=== PATIENT | male | born 1935 | race Caucasian/White ===

== ENCOUNTER 2017-08-17 05:54 | Inpatient (IN) | payer MEDICARE, BC ==
[~2017-08-17] VITALS: Ht 177.8 cm; Wt 94.1 kg
[~2017-08-17 05:54] MED LIST: ACET-2119 PO; ATOR40TA PO; CARV3.122 PO; CETI-1 PO; CHOL200074 PO; COU3T PO; DEXL60CA3 PO; DEXT1CAP3 PO; EZET10TA14 PO; FENO200C8 PO; FERR1TAB21 PO; FURO-150 PO; HYDR-565 PO; HYDR28.316 RC; MELO-102 PO; MONT10TA21 PO; NITR0.4T51 SL; POLY17PO10 PO; POTA8TAB8 PO; SENN-129 PO; SERT50TA PO; TERA2CAP4 PO
[2017-08-17] MEDS ORDERED: nitroGLYCERIN 0.4mg SUBLingual tab SL PRN ×2 (06:20→16:15)
[2017-08-17] MEDS ORDERED: aspirin 81mg tab.chew PO ONE (06:20)
[2017-08-17 06:40] LABS: BASOPHILS % (AUTO) 0.6 % (0-1); EOSINOPHILS # (AUTO) 0.8 X10'3 (0-0.9); EOSINOPHILS % (AUTO) 9.6 % (0-6); HEMATOCRIT 32.4 % (42.0-52.0); HEMOGLOBIN 10.7 g/dl (14.0-17.9); LYMPHOCYTES # (AUTO) 1.5 X10'3 (1.1-4.8); LYMPHOCYTES % (AUTO) 18.9 % (21-51); MEAN CORPUSCULAR HEMOGLOBIN 32.1 PG (27.0-31.0); MEAN CORPUSCULAR HGB CONC 32.9 % (33.0-36.5); MEAN CORPUSCULAR VOLUME 97.3 FL (78-98); MONOCYTES # (AUTO) 0.9 X10'3 (0-0.9); MONOCYTES % (AUTO) 11.4 % (2-12); NEUTROPHILS # (AUTO) 4.8 X10'3 (1.8-7.7); NEUTROPHILS % (AUTO) 59.5 % (42-75); PLATELET COUNT 173 X10'3 (140-440); RED BLOOD COUNT 3.33 X10'6 (4.70-6.10); RED CELL DISTRIBUTION WIDTH 15.3 % (11.5-14.5); WHITE BLOOD COUNT 8.1 X10'3 (4.5-11.0)
[2017-08-17] MEDS ORDERED: ondansetron/PF 4mg/2ml inj IV ONE (06:45)
[2017-08-17 06:51] LABS: INR 1.9 INR; PROTHROMBIN TIME 19.4 SECONDS (9.0-12.0)
[2017-08-17 06:57] LABS: ALANINE AMINOTRANSFERASE 21 U/L (12-78); ALBUMIN 2.7 G/DL (3.4-5.0); ALBUMIN/GLOBULIN RATIO 0.8 (1.1-1.5); ALKALINE PHOSPHATASE 113 IU/L (46-116); ANION GAP 4 (8-16); ASPARTATE AMINO TRANSFERASE 28 U/L (10-37); BILIRUBIN,TOTAL 0.3 MG/DL (0.1-1.0); BLOOD UREA NITROGEN 19 MG/DL (7-18); BUN/CREATININE RATIO 18.8 (5.4-32.0); CALCIUM 8.8 MG/DL (8.5-10.1); CHLORIDE 108 MMOL/L (99-107); CREATININE 1.01 MG/DL (0.60-1.10); GLUCOSE 101 MG/DL (70-104); SODIUM 147 MMOL/L (135-145); TOTAL CARBON DIOXIDE 35.3 MMOL/L (24-32); TOTAL PROTEIN 6.3 G/DL (6.4-8.2); eGFR 71 ML/MIN
[2017-08-17] MEDS ORDERED: acetaminophen 325mg tablet PO ONE (07:00)
[2017-08-17 07:06] LABS: MAGNESIUM 1.9 MG/DL (1.5-2.4)
[2017-08-17] MEDS ORDERED: mag hydrox/Alum hydrox/simeth 30ml oral suspension PO ONE (07:20)
[2017-08-17 09:00] VITALS: BP 166/76
[2017-08-17] MEDS: normal saline 1000ml 1,000 ML IV SCH ×2 (09:04→15:07)
[2017-08-17] MEDS ORDERED: morphine sulfate 8 MG/ML SYRINGE IV PRN ×2 (09:05)
[2017-08-17] MEDS ORDERED: bisacodyl 10mg suppository rectal RC PRN (09:05)
[2017-08-17] MEDS ORDERED: ondansetron/PF 4mg/2ml inj IV PRN (09:05)
[2017-08-17] MEDS ORDERED: HYDROcodone/acetaminophen 10/325mg tab PO PRN (09:05)
[2017-08-17] MEDS ORDERED: pantoprazole 40 MG vial IV ONE (09:05)
[2017-08-17] MEDS ORDERED: magnesium hydroxide 30ml (MOM) UD suspension PO PRN ×2 (09:05→16:15)
[2017-08-17] MEDS ORDERED: mag hydrox/Alum hydrox/simeth 30ml oral suspension PO PRN (09:05)
[2017-08-17] MEDS ORDERED: acetaminophen 325mg tablet PO PRN ×2 (09:05)
[2017-08-17] MEDS ORDERED: HYDROcodone/acetaminophen 5mg/325mg tablet PO PRN (09:05)
[2017-08-17] MEDS ORDERED: PANT-47 PO (10:16)
[2017-08-17] MEDS ORDERED: ACET-2119 PO (10:18)
[2017-08-17] MEDS ORDERED: DEXT15DR7 EACHEYE (10:19)
[2017-08-17] MEDS ORDERED: MAGN400O6 PO (10:24)
[2017-08-17 11:00] VITALS: BP 164/78
[2017-08-17 15:00] VITALS: BP 113/56
[2017-08-17] MEDS ORDERED: polyvinyl alcohol ophthalmic drops 15ml bottle EACHEYE PRN (16:30)
[2017-08-17 19:00] VITALS: BP 141/68
[2017-08-17] MEDS: docusate sodium 100mg/10ml UD cup PO SCH (20:00)
[2017-08-17] MEDS: HYDROcodone/acetaminophen 10/325mg tab PO PRN (20:00)
[2017-08-17] MEDS: carVEDilol 3.125mg tablet PO SCH (20:00)
[2017-08-17] MEDS: DEXTROMETHORPHAN HBR PO SCH (20:03)
[2017-08-17] MEDS: QUINIDINE PO SCH (20:03)
[2017-08-17] MEDS ORDERED: warfarin 3mg tablet PO ONE (21:00)
[2017-08-17] MEDS: HYDROCORTISONE 28.35 GM CREAM.GM. RC SCH (21:00)
[2017-08-17] MEDS ORDERED: temazepam 15mg capsule PO PRN (21:00)
[2017-08-17] MEDS: atorvastatin 20mg tablet PO SCH (21:50)
[2017-08-17] MEDS: Terazosin 1mg capsule PO SCH (21:51)
[2017-08-17 23:00] VITALS: BP 126/57
[2017-08-18 03:00] VITALS: BP 138/68
[2017-08-18 06:00] VITALS: BP 140/71
[2017-08-18 06:32] LABS: BASOPHILS % (AUTO) 0.7 % (0-1); EOSINOPHILS # (AUTO) 0.8 X10'3 (0-0.9); HEMATOCRIT 29.4 % (42.0-52.0); HEMOGLOBIN 9.5 g/dl (14.0-17.9); LYMPHOCYTES # (AUTO) 1.4 X10'3 (1.1-4.8); LYMPHOCYTES % (AUTO) 20.1 % (21-51); MEAN CORPUSCULAR HEMOGLOBIN 31.6 PG (27.0-31.0); MEAN CORPUSCULAR HGB CONC 32.4 % (33.0-36.5); MEAN CORPUSCULAR VOLUME 97.3 FL (78-98); MEAN PLATELET VOLUME 8.7 FL (7.4-10.4); MONOCYTES # (AUTO) 0.7 X10'3 (0-0.9); MONOCYTES % (AUTO) 10.4 % (2-12); NEUTROPHILS # (AUTO) 4.1 X10'3 (1.8-7.7); NEUTROPHILS % (AUTO) 57.8 % (42-75); PLATELET COUNT 161 X10'3 (140-440); RED BLOOD COUNT 3.02 X10'6 (4.70-6.10); RED CELL DISTRIBUTION WIDTH 14.9 % (11.5-14.5); WHITE BLOOD COUNT 7.2 X10'3 (4.5-11.0)
[2017-08-18 07:33] LABS: ALBUMIN 2.3 G/DL (3.4-5.0); ANION GAP 3 (8-16); BLOOD UREA NITROGEN 16 MG/DL (7-18); BUN/CREATININE RATIO 18.2 (5.4-32.0); CALCIUM 8.7 MG/DL (8.5-10.1); CHLORIDE 110 MMOL/L (99-107); CREATININE 0.88 MG/DL (0.60-1.10); GLUCOSE 93 MG/DL (70-104); POTASSIUM 4.1 MMOL/L (3.5-5.1); SODIUM 147 MMOL/L (135-145); TOTAL CARBON DIOXIDE 33.8 MMOL/L (24-32); eGFR 83 ML/MIN
[2017-08-18] MEDS: HYDROCORTISONE 28.35 GM CREAM.GM. RC SCH ×4 (08:00→20:48)
[2017-08-18] MEDS: vitamin D (cholecalciferol) 1,000 unit tablet PO SCH (08:20)
[2017-08-18] MEDS: sertraline 50mg tablet PO SCH (08:20)
[2017-08-18] MEDS: ferrous sulfate 325mg tablet PO SCH (08:20)
[2017-08-18] MEDS: sennosides/docusate sodium tablet PO SCH (08:21)
[2017-08-18] MEDS: carVEDilol 3.125mg tablet PO SCH ×2 (08:21→20:00)
[2017-08-18] MEDS: ascorbic acid 500mg tablet PO SCH (08:21)
[2017-08-18] MEDS: cetirizine 10mg tablet PO SCH (08:21)
[2017-08-18] MEDS: pantoprazole 40mg Tablet.DR PO SCH (08:21)
[2017-08-18] MEDS: furosemide 20MG tablet PO SCH (08:21)
[2017-08-18] MEDS: docusate sodium 100mg/10ml UD cup PO SCH ×2 (08:22→20:00)
[2017-08-18] MEDS: enoxaparin 40mg/0.4ml syringe SQ SCH (08:22)
[2017-08-18] MEDS: montelukast 10mg tablet PO SCH (08:22)
[2017-08-18] MEDS: DEXTROMETHORPHAN HBR PO SCH ×2 (10:01→20:47)
[2017-08-18] MEDS: QUINIDINE PO SCH ×2 (10:01→20:47)
[2017-08-18] MEDS: HYDROcodone/acetaminophen 10/325mg tab PO PRN ×2 (10:06→18:04)
[2017-08-18 11:00] VITALS: BP 101/41
[2017-08-18 15:00] VITALS: BP_SYST 101; BP_SYST 131; BP_DIAS 41; BP_DIAS 66
[2017-08-18 18:00] VITALS: BP 102/46
[2017-08-18] MEDS: Terazosin 1mg capsule PO SCH (20:36)
[2017-08-18] MEDS: atorvastatin 20mg tablet PO SCH (20:45)
[2017-08-18] MEDS ORDERED: warfarin 3mg tablet PO ONE (21:00)
[2017-08-19] MEDS: sennosides/docusate sodium tablet PO SCH ×2 (08:00→09:46)
[2017-08-19] MEDS: vitamin D (cholecalciferol) 1,000 unit tablet PO SCH ×2 (08:00→09:43)
[2017-08-19] MEDS: sertraline 50mg tablet PO SCH ×2 (08:00→09:44)
[2017-08-19] MEDS: HYDROCORTISONE 28.35 GM CREAM.GM. RC SCH ×2 (08:00→13:00)
[2017-08-19] MEDS: furosemide 20MG tablet PO SCH ×2 (08:00→09:44)
[2017-08-19] MEDS: carVEDilol 3.125mg tablet PO SCH ×2 (08:00→09:44)
[2017-08-19] MEDS: DEXTROMETHORPHAN HBR PO SCH ×2 (08:00→09:43)
[2017-08-19] MEDS: ferrous sulfate 325mg tablet PO SCH ×2 (08:00→09:43)
[2017-08-19] MEDS: cetirizine 10mg tablet PO SCH ×2 (08:00→09:44)
[2017-08-19] MEDS: ascorbic acid 500mg tablet PO SCH ×2 (08:00→09:43)
[2017-08-19] MEDS: montelukast 10mg tablet PO SCH ×2 (08:00→09:44)
[2017-08-19] MEDS: potassium chloride 8mEq ER tablet PO SCH ×2 (08:00→09:43)
[2017-08-19] MEDS: pantoprazole 40mg Tablet.DR PO SCH ×2 (08:00→09:44)
[2017-08-19] MEDS: QUINIDINE PO SCH ×2 (08:00→09:43)
[2017-08-19] MEDS: docusate sodium 100mg/10ml UD cup PO SCH (08:00)
[2017-08-19] MEDS: enoxaparin 40mg/0.4ml syringe SQ SCH ×2 (08:00→09:46)
[2017-08-19] MEDS: normal saline 1000ml 1,000 ML IV SCH (09:04)
[2017-08-19] MEDS: HYDROcodone/acetaminophen 10/325mg tab PO PRN (15:20)
[2017-08-19 16:19] LABS: BASOPHILS % (AUTO) 0.5 % (0-1); EOSINOPHILS # (AUTO) 0.7 X10'3 (0-0.9); EOSINOPHILS % (AUTO) 10.1 % (0-6); HEMATOCRIT 31.3 % (42.0-52.0); HEMOGLOBIN 10.4 g/dl (14.0-17.9); LYMPHOCYTES # (AUTO) 1.1 X10'3 (1.1-4.8); LYMPHOCYTES % (AUTO) 15.4 % (21-51); MEAN CORPUSCULAR HEMOGLOBIN 32.1 PG (27.0-31.0); MEAN CORPUSCULAR HGB CONC 33.2 % (33.0-36.5); MEAN CORPUSCULAR VOLUME 96.8 FL (78-98); MEAN PLATELET VOLUME 8.3 FL (7.4-10.4); MONOCYTES # (AUTO) 0.8 X10'3 (0-0.9); MONOCYTES % (AUTO) 12.1 % (2-12); NEUTROPHILS # (AUTO) 4.2 X10'3 (1.8-7.7); NEUTROPHILS % (AUTO) 61.9 % (42-75); PLATELET COUNT 183 X10'3 (140-440); RED BLOOD COUNT 3.23 X10'6 (4.70-6.10); RED CELL DISTRIBUTION WIDTH 15.4 % (11.5-14.5); WHITE BLOOD COUNT 6.8 X10'3 (4.5-11.0)
[2017-08-19] MEDS ORDERED: PANT-47 PO (16:28)
[2017-08-19] MEDS ORDERED: METO-292 PO (16:31)
[2017-08-19 16:32] LABS: ALBUMIN 2.5 G/DL (3.4-5.0); ANION GAP 2 (8-16); BLOOD UREA NITROGEN 21 MG/DL (7-18); BUN/CREATININE RATIO 18.9 (5.4-32.0); CALCIUM 8.6 MG/DL (8.5-10.1); CHLORIDE 107 MMOL/L (99-107); CREATININE 1.11 MG/DL (0.60-1.10); GLUCOSE 91 MG/DL (70-104); MAGNESIUM 1.9 MG/DL (1.5-2.4); POTASSIUM 3.9 MMOL/L (3.5-5.1); SODIUM 146 MMOL/L (135-145); TOTAL CARBON DIOXIDE 36.8 MMOL/L (24-32); eGFR 63 ML/MIN
[2017-08-19 16:35] LABS: INR 2.1 INR; PROTHROMBIN TIME 21.1 SECONDS (9.0-12.0)
[2017-08-19] MEDS ORDERED: LEVO750T21 PO (17:50)
[2017-08-19] MEDS ORDERED: warfarin 1mg tablet PO ONE (21:00)
== END 2017-08-19 18:40 | disposition home health service (06) | DRG 392 ==
LOC: ER 05:54 → ED HOLD 07:57 → PCU 3S 09:00 → OBSVTOIN 09:36
PROVIDERS: ADMIT Nurse Practitioner Family; ATTEND Internal Medicine
DX: K21.9 Gastro-esophageal reflux disease without esophagitis (principal); I48.91 Unspecified atrial fibrillation; I69.351 Hemiplegia and hemiparesis following cerebral infarction affecting right dominant side; R07.89 Other chest pain; I25.10 Atherosclerotic heart disease of native coronary artery without angina pectoris; E11.9 Type 2 diabetes mellitus without complications; K22.4 Dyskinesia of esophagus; I10 Essential (primary) hypertension; G89.29 Other chronic pain; E78.00 Pure hypercholesterolemia, unspecified; M19.90 Unspecified osteoarthritis, unspecified site; Z51.5 Encounter for palliative care; Z66 Do not resuscitate; I69.392 Facial weakness following cerebral infarction; Z95.1 Presence of aortocoronary bypass graft; Z95.0 Presence of cardiac pacemaker; Z90.49 Acquired absence of other specified parts of digestive tract; Z79.899 Other long term (current) drug therapy; Z79.01 Long term (current) use of anticoagulants; Z91.040 Latex allergy status; Z91.018 Allergy to other foods; Z82.49 Family history of ischemic heart disease and other diseases of the circulatory system; Z80.1 Family history of malignant neoplasm of trachea, bronchus and lung; Z82.3 Family history of stroke
CPT/HCPCS: 36415; 71010; 80048; 80053; 83735; 83880; 84484; 85025; 85610; 85651; 92616; 96374; 97116; 97162; 99285; A4649; A6213; C9113; G0378; J1650; J2270; J2405; J7030

== ENCOUNTER 2018-07-13 13:41 | Emergency (ER) | payer MEDICARE, BC ==
[~2018-07-13] VITALS: Ht 180.3 cm; Wt 104.0 kg
[~2018-07-13 13:41] MED LIST changes: -DEXL60CA3 PO; +DEXT15DR7 EACHEYE; -EZET10TA14 PO; -FENO200C8 PO; +HYDR-4353 PO; -HYDR-565 PO; +MAGN400O6 PO; -MELO-102 PO; +METO-292 PO; +PANT-47 PO
[2018-07-13] MEDS ORDERED: normal saline 1000ML IV soln IVB ONE (13:50)
[2018-07-13] MEDS ORDERED: morphine 4 MG/ML inj SYRINge IV PRN (13:50)
[2018-07-13] MEDS ORDERED: ondansetron/PF 4mg/2ml inj IV ONE (13:50)
[2018-07-13 14:14] LABS: BASOPHILS % (AUTO) 0.6 % (0-1); EOSINOPHILS # (AUTO) 0.6 X10'3 (0-0.9); EOSINOPHILS % (AUTO) 7.3 % (0-6); HEMATOCRIT 31.8 % (42.0-52.0); HEMOGLOBIN 10.5 g/dl (14.0-17.9); LYMPHOCYTES # (AUTO) 1.3 X10'3 (1.1-4.8); LYMPHOCYTES % (AUTO) 16.8 % (21-51); MEAN CORPUSCULAR HEMOGLOBIN 31.3 PG (27.0-31.0); MEAN CORPUSCULAR HGB CONC 33.1 % (33.0-36.5); MEAN CORPUSCULAR VOLUME 94.7 FL (78-98); MEAN PLATELET VOLUME 8.6 FL (7.4-10.4); MONOCYTES # (AUTO) 0.9 X10'3 (0-0.9); MONOCYTES % (AUTO) 12.3 % (2-12); NEUTROPHILS # (AUTO) 4.8 X10'3 (1.8-7.7); PLATELET COUNT 209 X10'3 (140-440); RED BLOOD COUNT 3.36 X10'6 (4.70-6.10); RED CELL DISTRIBUTION WIDTH 15.7 % (11.5-14.5); WHITE BLOOD COUNT 7.7 X10'3 (4.5-11.0)
[2018-07-13 14:33] LABS: ALANINE AMINOTRANSFERASE 11 U/L (12-78); ALBUMIN 2.5 G/DL (3.4-5.0); ALBUMIN/GLOBULIN RATIO 0.7 (1.1-1.5); ANION GAP 4 (8-16); ASPARTATE AMINO TRANSFERASE 26 U/L (10-37); BILIRUBIN,TOTAL 0.5 MG/DL (0.1-1.0); BLOOD UREA NITROGEN 20 MG/DL (7-18); CALCIUM 8.7 MG/DL (8.5-10.1); CHLORIDE 106 MMOL/L (99-107); CREATININE 1.05 MG/DL (0.60-1.10); GLUCOSE 99 MG/DL (70-104); SODIUM 144 MMOL/L (135-145); TOTAL CARBON DIOXIDE 34.1 MMOL/L (24-32); TOTAL PROTEIN 6.3 G/DL (6.4-8.2); eGFR 67 ML/MIN
[2018-07-13 14:45] LABS: TROPONIN I < 0.04 NG/ML (0.0-0.05)
[2018-07-13 14:59] LABS: ALKALINE PHOSPHATASE 93 IU/L (46-116)
[2018-07-13 15:55] VITALS: BP 144/65
[2018-07-14] MEDS ORDERED: DEXL60CA3 PO (20:01)
[2018-07-14] MEDS ORDERED: BUSP10TA11 PO (20:03)
[2018-07-14] MEDS ORDERED: PANT-47 PO (22:18)
== END 2018-07-13 15:58 | disposition home or self-care (01) ==
LOC: ER 13:42
DX: R10.84 Generalized abdominal pain (principal); R10.30 Lower abdominal pain, unspecified; I48.91 Unspecified atrial fibrillation; I25.10 Atherosclerotic heart disease of native coronary artery without angina pectoris; E78.00 Pure hypercholesterolemia, unspecified; I10 Essential (primary) hypertension; E11.9 Type 2 diabetes mellitus without complications; M19.90 Unspecified osteoarthritis, unspecified site; G89.29 Other chronic pain; Z86.73 Personal history of transient ischemic attack (TIA), and cerebral infarction without residual deficits; Z95.5 Presence of coronary angioplasty implant and graft; Z90.49 Acquired absence of other specified parts of digestive tract; Z95.1 Presence of aortocoronary bypass graft; Z98.890 Other specified postprocedural states; Z91.040 Latex allergy status; Z79.899 Other long term (current) drug therapy; Z79.01 Long term (current) use of anticoagulants; Z91.018 Allergy to other foods
CPT/HCPCS: 36415; 74176; 80053; 84484; 85025; 96374; 96375; 99284; J2270; J2405; J7030

== ENCOUNTER 2018-07-14 17:24 | Inpatient (IN) | payer MEDICARE, BC ==
[~2018-07-14] VITALS: Ht 180.3 cm; Wt 100.0 kg
[2018-07-14] MEDS ORDERED: normal saline 1000ML IV soln IVB ONE (18:00)
[2018-07-14] MEDS ORDERED: morphine 4 MG/ML inj SYRINge IV ONE (18:00)
[2018-07-14] MEDS ORDERED: ondansetron/PF 4mg/2ml inj IV ONE (18:00)
[2018-07-14] MEDS ORDERED: iohexol 350MG/ML 100ml bottle IV ONE (18:23)
[2018-07-14 18:58] LABS: BASOPHILS # (AUTO) 0.1 X10'3 (0-0.2); BASOPHILS % (AUTO) 0.7 % (0-1); EOSINOPHILS # (AUTO) 0.2 X10'3 (0-0.9); EOSINOPHILS % (AUTO) 2.6 % (0-6); HEMATOCRIT 30.5 % (42.0-52.0); HEMOGLOBIN 9.9 g/dl (14.0-17.9); LYMPHOCYTES # (AUTO) 1.1 X10'3 (1.1-4.8); LYMPHOCYTES % (AUTO) 12.8 % (21-51); MEAN CORPUSCULAR HEMOGLOBIN 31.1 PG (27.0-31.0); MEAN CORPUSCULAR HGB CONC 32.6 % (33.0-36.5); MEAN CORPUSCULAR VOLUME 95.3 FL (78-98); MONOCYTES % (AUTO) 11.6 % (2-12); NEUTROPHILS # (AUTO) 6.4 X10'3 (1.8-7.7); NEUTROPHILS % (AUTO) 72.3 % (42-75); PLATELET COUNT 198 X10'3 (140-440); RED CELL DISTRIBUTION WIDTH 15.5 % (11.5-14.5); WHITE BLOOD COUNT 8.8 X10'3 (4.5-11.0)
[2018-07-14 19:07] LABS: ALANINE AMINOTRANSFERASE 12 U/L (12-78); ALBUMIN 2.5 G/DL (3.4-5.0); ALBUMIN/GLOBULIN RATIO 0.7 (1.1-1.5); ALKALINE PHOSPHATASE 105 IU/L (46-116); ANION GAP 3 (8-16); BILIRUBIN,TOTAL 0.5 MG/DL (0.1-1.0); BLOOD UREA NITROGEN 25 MG/DL (7-18); BUN/CREATININE RATIO 17.6 (5.4-32.0); CALCIUM 8.7 MG/DL (8.5-10.1); CHLORIDE 106 MMOL/L (99-107); CREATININE 1.42 MG/DL (0.60-1.10); GLUCOSE 110 MG/DL (70-104); LIPASE 94 U/L (73-393); SODIUM 143 MMOL/L (135-145); TOTAL CARBON DIOXIDE 33.9 MMOL/L (24-32); TOTAL PROTEIN 6.3 G/DL (6.4-8.2); eGFR 48 ML/MIN
[2018-07-14 19:09] LABS: ASPARTATE AMINO TRANSFERASE 31 U/L (10-37)
[2018-07-14] MEDS ORDERED: CefTRIAXone inj 1,000 MG in normal saline 50ml IV soln 50 ML IV ONE (20:00)
[2018-07-14] MEDS ORDERED: DEXL60CA3 PO (20:01)
[2018-07-14] MEDS ORDERED: CefTRIAXone/D5W-Rocephin 1gm 50 ML IV ONE (20:02)
[2018-07-14] MEDS ORDERED: BUSP10TA11 PO (20:03)
[2018-07-14] MEDS ORDERED: ipratropium/albuterol 3ml nebule NEB ONE (20:05)
[2018-07-14 20:08] LABS: CLARITY,URINE CLEAR (Clear); COLOR,URINE YELLOW (Yellow); GLUCOSE, URINE NEGATIVE (Neg); KETONES,URINE NEGATIVE (Neg); LEUKOCYTE ESTERASE ,URINE NEGATIVE (Neg); NITRITES, URINE NEGATIVE (Neg); OCCULT BLOOD,URINE NEGATIVE (Neg); PH,URINE 5.5 (4.8-8.0); PROTEIN,URINE NEGATIVE (Neg); UROBILINOGEN,URINE 0.2 E.U/dL (0.2-1.0)
[2018-07-14 20:18] LABS: URINE AMPHETAMINE SCREEN NEGATIVE (Neg); URINE BARBITUATE SCREEN NEGATIVE (Neg); URINE BENZODIAZEPINES SCREEN NEGATIVE (Neg); URINE CANNABINOID SCREEN NEGATIVE (Neg); URINE COCAINE SCREEN NEGATIVE (Neg); URINE METHADONE SCREEN NEGATIVE (Neg); URINE OPIATE SCREEN POSITIVE (Neg); URINE PHENCYCLIDINE SCREEN NEGATIVE (Neg)
[2018-07-14 20:21] LABS: UA COLLECTION TYPE CLN CATCH MIDSTREAM
[2018-07-14] MEDS ORDERED: temazepam 15mg capsule PO PRN (21:00)
[2018-07-14] MEDS ORDERED: normal saline 1000ml 1,000 ML IV SCH (21:14)
[2018-07-14] MEDS ORDERED: HYDROmorphone 1 mg/ml syringe IV PRN (21:15)
[2018-07-14] MEDS ORDERED: diphenhydrAMINE 50 mg/ml inj IV PRN (21:15)
[2018-07-14] MEDS ORDERED: bisacodyl 10mg suppository rectal RC PRN (21:15)
[2018-07-14] MEDS ORDERED: diphenhydrAMINE 25mg capsule PO PRN (21:15)
[2018-07-14] MEDS ORDERED: magnesium hydroxide 30ml (MOM) UD suspension PO PRN (21:15)
[2018-07-14] MEDS ORDERED: acetaminophen 325mg tablet PO PRN ×2 (21:15)
[2018-07-14] MEDS ORDERED: mag hydrox/Alum hydrox/simeth 30ml oral suspension PO PRN (21:15)
[2018-07-14] MEDS ORDERED: metoclopramide 5 mg/ml inj IV PRN (21:15)
[2018-07-14] MEDS ORDERED: acetaminophen 650mg rectal suppository RC PRN (21:15)
[2018-07-14] MEDS ORDERED: HYDROcodone/acetaminophen 5mg/325mg tablet PO PRN (21:15)
[2018-07-14] MEDS ORDERED: ondansetron/PF 4mg/2ml inj IV PRN (21:15)
[2018-07-14] MEDS: azithromycin/NS 500mg/250ml 250 ML IV ONE ×2 (21:45→22:11)
[2018-07-14 22:04] LABS: INR 2.4 INR; PARTIAL THROMBOPLASTIN TIME 41 SECONDS (22-32); PROTHROMBIN TIME 22.9 SECONDS (9.0-12.0)
[2018-07-14 22:06] LABS: HEMOGLOBIN A1C 5.9 % (4.5-6.2)
[2018-07-14 22:14] LABS: MAGNESIUM 2.6 MG/DL (1.5-2.4)
[2018-07-14] MEDS ORDERED: PANT-47 PO (22:18)
[2018-07-15 02:00] VITALS: BP 152/66
[2018-07-15] MEDS: morphine 2 MG/ML inj. syringe IV PRN (04:26)
[2018-07-15] MEDS ORDERED: HYDROmorphone 2mg/ml vial IV PRN (05:40)
[2018-07-15] MEDS: HYDROmorphone 1 mg/ml syringe IV PRN (06:00)
[2018-07-15 06:47] LABS: HEMATOCRIT 26.7 % (42.0-52.0); HEMOGLOBIN 8.7 g/dl (14.0-17.9); MEAN CORPUSCULAR HEMOGLOBIN 31.2 PG (27.0-31.0); MEAN CORPUSCULAR HGB CONC 32.6 % (33.0-36.5); MEAN CORPUSCULAR VOLUME 95.7 FL (78-98); MEAN PLATELET VOLUME 9.2 FL (7.4-10.4); PLATELET COUNT 177 X10'3 (140-440); RED BLOOD COUNT 2.79 X10'6 (4.70-6.10); RED CELL DISTRIBUTION WIDTH 15.3 % (11.5-14.5); WHITE BLOOD COUNT 7.6 X10'3 (4.5-11.0)
[2018-07-15 07:00] VITALS: BP_SYST 117; BP_SYST 122; BP_DIAS 66; BP_DIAS 80
[2018-07-15 07:32] LABS: ALANINE AMINOTRANSFERASE 12 U/L (12-78); ALBUMIN 2.2 G/DL (3.4-5.0); ALBUMIN/GLOBULIN RATIO 0.7 (1.1-1.5); ALKALINE PHOSPHATASE 85 IU/L (46-116); ANION GAP 6 (8-16); ASPARTATE AMINO TRANSFERASE 24 U/L (10-37); BILIRUBIN,TOTAL 0.4 MG/DL (0.1-1.0); BLOOD UREA NITROGEN 22 MG/DL (7-18); BUN/CREATININE RATIO 19.8 (5.4-32.0); CALCIUM 8.3 MG/DL (8.5-10.1); CHLORIDE 108 MMOL/L (99-107); CHOLESTEROL 100 MG/DL (0-200); CREATININE 1.11 MG/DL (0.60-1.10); GLUCOSE 95 MG/DL (70-104); HDL CHOLESTEROL 33 MG/DL (35-60); LDL CHOLESTEROL 57 MG/DL (50-100); SODIUM 145 MMOL/L (135-145); TOTAL CARBON DIOXIDE 31.4 MMOL/L (24-32); TOTAL PROTEIN 5.4 G/DL (6.4-8.2); TRIGLYCERIDES 55 MG/DL (20-135); eGFR 63 ML/MIN
[2018-07-15] MEDS ORDERED: docusate sod 100mg capsule PO SCH (08:00)
[2018-07-15] MEDS ORDERED: CefTRIAXone/D5W-Rocephin 1gm 50 ML IV SCH (08:00)
[2018-07-15] MEDS ORDERED: methylPREDNISolone sod succ 125mg/2ml vial IV SCH (08:00)
[2018-07-15 09:18] LABS: ANISOCYTOSIS 1+; PLATELET ESTIMATE NORMAL; TOTAL CELLS COUNTED 100
[2018-07-15] MEDS: morphine 10mg/0.5ml (conc. morphine) oral syringe PO PRN ×2 (15:27→22:00)
[2018-07-15 19:00] VITALS: BP 140/67
[2018-07-15] MEDS ORDERED: azithromycin/NS 500mg/250ml 250 ML IV SCH (20:00)
[2018-07-15] MEDS: LORazepam 2 mg/ml vial IV PRN (22:01)
[2018-07-16 07:00] VITALS: BP 82/49
[2018-07-16] MEDS: morphine 10mg/0.5ml (conc. morphine) oral syringe PO PRN ×3 (10:43→22:43)
[2018-07-16 19:30] VITALS: BP 136/61
[2018-07-17] MEDS: morphine 10mg/0.5ml (conc. morphine) oral syringe PO PRN ×4 (01:39→21:46)
[2018-07-17 07:40] VITALS: BP 139/58
[2018-07-17] MEDS: HYDROmorphone 1 mg/ml syringe IV PRN (10:02)
[2018-07-17] MEDS: LORazepam 2 mg/ml vial IV PRN ×2 (10:26→15:10)
[2018-07-17 20:00] VITALS: BP 168/86
[2018-07-18] MEDS: morphine 10mg/0.5ml (conc. morphine) oral syringe PO PRN ×6 (00:27→21:26)
[2018-07-18] MEDS: LORazepam 2 mg/ml vial IV PRN ×4 (00:34→20:00)
[2018-07-18 07:30] VITALS: BP 176/106
[2018-07-18 20:00] VITALS: BP 146/103
[2018-07-19] MEDS: morphine 10mg/0.5ml (conc. morphine) oral syringe PO PRN ×4 (04:57→21:42)
[2018-07-19] MEDS: LORazepam 2 mg/ml vial IV PRN ×4 (05:01→21:46)
[2018-07-19] MEDS: morphine 2 MG/ML inj. syringe IV PRN (05:45)
[2018-07-19 07:07] VITALS: BP 149/110
[2018-07-19 20:00] VITALS: BP 153/82
[2018-07-20] MEDS: LORazepam 2 mg/ml vial IV PRN ×3 (02:43→23:28)
[2018-07-20] MEDS: morphine 10mg/0.5ml (conc. morphine) oral syringe PO PRN ×7 (02:43→23:28)
[2018-07-20 08:00] VITALS: BP 149/102
[2018-07-20 20:00] VITALS: BP 104/78
[2018-07-21] MEDS: LORazepam 2 mg/ml vial IV PRN (03:24)
[2018-07-21] MEDS: morphine 10mg/0.5ml (conc. morphine) oral syringe PO PRN ×4 (03:25→10:34)
[2018-07-21 07:22] VITALS: BP 164/91
[2018-07-21] MEDS ORDERED: morphine 2 MG/ML inj. syringe IV PRN (11:40)
[2018-07-21] MEDS ORDERED: ondansetron/PF 4mg/2ml inj IV SCH (12:00)
== END 2018-07-21 13:56 | disposition expired | DRG 682 ==
LOC: ER 17:24 → ED HOLD 21:14 → SUR 3N 23:59
PROVIDERS: ADMIT Family Medicine; ATTEND Internal Medicine
PROC: BW251ZZ Computerized Tomography (CT Scan) of Chest, Abdomen and Pelvis using Low Osmolar Contrast (ICD-10-PCS; principal; 2018-07-14)
PROC: 06HM33Z Insertion of Infusion Device into Right Femoral Vein, Percutaneous Approach (ICD-10-PCS; 2018-07-14)
PROC: B54BZZA Ultrasonography of Right Lower Extremity Veins, Guidance (ICD-10-PCS; 2018-07-14)
DX: N17.9 Acute kidney failure, unspecified (principal); G93.41 Metabolic encephalopathy; E43 Unspecified severe protein-calorie malnutrition; J96.00 Acute respiratory failure, unspecified whether with hypoxia or hypercapnia; J44.1 Chronic obstructive pulmonary disease with (acute) exacerbation; I50.42 Chronic combined systolic (congestive) and diastolic (congestive) heart failure; I69.351 Hemiplegia and hemiparesis following cerebral infarction affecting right dominant side; I11.0 Hypertensive heart disease with heart failure; I48.91 Unspecified atrial fibrillation; G89.29 Other chronic pain; M19.90 Unspecified osteoarthritis, unspecified site; E78.00 Pure hypercholesterolemia, unspecified; R62.7 Adult failure to thrive; Z66 Do not resuscitate; Z51.5 Encounter for palliative care; I25.10 Atherosclerotic heart disease of native coronary artery without angina pectoris; Z90.49 Acquired absence of other specified parts of digestive tract; Z95.0 Presence of cardiac pacemaker; Z95.1 Presence of aortocoronary bypass graft; Z91.040 Latex allergy status; Z91.018 Allergy to other foods; Z91.048 Other nonmedicinal substance allergy status; Z79.01 Long term (current) use of anticoagulants; Z79.899 Other long term (current) drug therapy; Z80.1 Family history of malignant neoplasm of trachea, bronchus and lung; Z82.3 Family history of stroke; Z68.30 Body mass index [BMI] 30.0-30.9, adult
CPT/HCPCS: 36415; 70450; 71045; 71275; 74174; 80053; 80061; 80305; 81003; 82140; 82948; 83036; 83605; 83690; 83735; 83880; 84100; 84484; 85025; 85610; 85730; 87040; 87070; 93005; 94640; 94760; 96374; 96375; 99285; G0378; J0456; J0696; J1170; J2060; J2270; J2405; J2930; J7040; Q9967